=== PATIENT | female | born 1965 | race Caucasian/White ===

== ENCOUNTER 2016-12-05 02:23 | Emergency (ER) | payer MEDICAID, OTHER ==
[2016-12-05 02:44] VITALS: BP 112/85
[2016-12-05] MEDS ORDERED: Dextrose 5%-0.9% NaCl 1,000 ML IV SCH (03:00)
--- NOTE | 2016-12-05 03:06 | EDM.PDOC ---
ED HPI GENERAL MEDICAL PROBLEM - General Chief Complaint: Chest Pain Stated Complaint: [facility] Time Seen by Provider: 12/05/16 02:55 Source of Information: Reports: Patient History Limitations: Reports: No Limitations - History of Present Illness INITIAL COMMENTS - FREE TEXT/NARRATIVE: 51-year-old female attends the ED with severe central chest pressure discomfort that radiates up into the left neck left anterior chest and left shoulder. States she's had similar type pains several times in the last month or 2 but never to this severity usually they are very short-lived lasting 3-5 minutes. He is not aware of any gastroesophageal reflux disease and never has to use Tums or Rolaids. She denies any heartburn. She reports her were drinking alcohol this last evening and this seemed to make things much worse. Lines of pain in her epigastrium as well as her left upper quadrant of abdomen is well. Her concern that this may be heart related. She was given nitroglycerin 0.4 mg in the ambulance and is brought the pain down from a 7 to a 4. ECG done by triage nurse shows no signs of ischemia. Onset: Today Onset Date: 12/05/16 Onset Time: 00:00 Duration: Hour(s):, Getting Worse Location: Reports: Neck, Chest, Upper Extremity, Left Quality: Reports: Pressure, Sharp (Pain is sharp stabbing and spastic in nature. ), Stabbing, Other Severity: Severe (Pain was 10 out of 10 now down to about 3 out of 10.) Improves with: Reports: Other (Nitroglycerin 0.4 mg given by medics en route to [facility] from [place] seem to help ease the pain.) Worsens with: Reports: None Context: Reports: Other (Has been drinking alcohol). Denies: Activity, Exercise , Lifting, Sick Contact, Trauma Associated Symptoms: Reports: Chest Pain, Cough. Denies: Confusion, cough w sputum (See history of present illness), Diaphoresis (Has a smoker's cough currently smoking a half pack per day.), Fever/Chills, Headaches, Loss of Appetite, Malaise, Nausea/Vomiting, Rash, Seizure, Shortness of Breath, Syncope , Weakness Treatments SERVICER: Reports: IV/IO, Nitroglycerin, Oxygen mid chest area Pain Score (Numeric/FACES): 3 - Related Data Allergies Allergy/AdvReac Type Severity Reaction Status Date / Time latex Allergy Rash Verified 12/05/16 02:45 Opioids - Morphine Analogues Allergy Airway Verified 12/05/16 02:45 Tightness bee sting Allergy Airway Uncoded 12/05/16 02:45 Tightness Home Meds: Home Meds Albuterol Sulfate 0.63 mg IH BID 12/05/16 [History] Albuterol [IJD: Ventolin HFA] 1 puff INH .TWICE DAILY 12/05/16 [History] Amoxicillin [Amoxil] 1,000 mg PO Q12H #24 cap 12/05/16 [Rx] Clarithromycin [Biaxin] 500 mg PO BID #24 tablet 12/05/16 [Rx] Ibuprofen 400 mg PO ASDIRECTED PRN 12/05/16 [History] Past Medical History Respiratory History: Reports: Asthma, Bronchitis, Recurrent (Smoker.), COPD - Past Surgical History Female Surgical History: Reports: Hysterectomy Social & Family History - Living Situation & Occupation Living situation: Reports: Occupation: Unemployed ED ROS GENERAL - Review of Systems Review Of Systems: See Below Constitutional: Denies: Fever, Chills, Malaise, Weakness, Fatigue, Decreased Appetite, Weight Loss HEENT: Reports: No Symptoms Respiratory: Reports: Shortness of Breath, Wheezing (Occasionally she has history of COPD asthma.), Cough. Denies: Pleuritic Chest Pain, Hemoptysis ( Intermittent cough due to smoking cigarettes sputum is produced is usually clear to brown in color) Cardiovascular: Reports: Chest Pain, Dyspnea on Exertion. Denies: Blood Pressure Problem (See history of present illness), Claudication, Edema, Lightheadedness, Orthopnea, Palpitations (Sometimes) Endocrine: Reports: No Symptoms GI/Abdominal: Reports: Abdominal Pain (Current epigastric pressure discomfort). Denies: Constipation, Diarrhea, Decreased Appetite, Distension, Flatus : Reports: No Symptoms Musculoskeletal: Reports: No Symptoms Skin: Reports: No Symptoms Neurological: Reports: No Symptoms Psychiatric: Reports: No Symptoms Hematologic/Lymphatic: Reports: No Symptoms Immunologic: Reports: No Symptoms ED EXAM, GENERAL - Physical Exam Exam: See Below Exam Limited By: Intoxication (She is mild to moderately intoxicated by alcohol. ) General Appearance: Alert, WD/WN, Anxious, Moderate Distress Eye Exam: Bilateral Eye: Conjunctival Injection (Mild bilaterally), Nystagmus Throat/Mouth: Normal Inspection, Normal Lips, Normal Oropharynx Head: Atraumatic, Normocephalic Neck: Normal Inspection, Supple, Non-Tender, Full Range of Motion. No: Carotid Bruit, Lymphadenopathy (L), Lymphadenopathy (R) Respiratory/Chest: Lungs Clear, Normal Breath Sounds, No Accessory Muscle Use, Respiratory Distress Cardiovascular: Normal Peripheral Pulses, Regular Rate, Rhythm, No Edema, No Gallop, No Murmur Peripheral Pulses: 2+: Posterior Tibial (L), Posterior Tibial (R), Dorsalis Pedis (L), Dorsalis Pedis (R) GI/Abdominal: Normal Bowel Sounds, Soft, Tender, Other (Negative Melendez sign). No: Guarding (Some tenderness in the epigastrium but no rebound tenderness or guarding.), Rigid, Rebound Back Exam: Normal Inspection, Full Range of Motion. No: CVA Tenderness (L), CVA Tenderness (R) Extremities: Normal Inspection, Normal Range of Motion, Non-Tender, No Pedal Edema, Normal Capillary Refill Neurological: Alert, Oriented, CN II-XII Intact, Normal Cognition Psychiatric: Normal Affect, Normal Mood Skin Exam: Warm, Dry, Intact, Normal Color, No Rash EKG INTERPRETATION EKG Date: 12/05/16 Time: 02:30 Rhythm: NSR Rate (Beats/Min): 77 [place]: Normal P-Wave: Present QRS: Other (Diffuse early repolarization pattern.) ST-T: Other (Nonspecific T-wave inversion in lead aVL.) EKG Interpretation Comments: No evidence of ischemia on ECG. Course - Vital Signs Last Recorded V/S: Last Vital Signs Temp 36.2 C 12/05/16 02:30 Pulse 87 12/05/16 02:30 Resp 20 12/05/16 02:30 BP 112/85 12/05/16 02:30 Pulse Ox 100 12/05/16 02:30 - Orders/Labs/Meds Orders: Active Orders 24 hr Category Date Time Status EKG Documentation Completion [RC] STAT Care 12/05/16 02:56 Active Chest 1V Frontal [CR] Stat Exams 12/05/16 02:56 Taken Labs: Laboratory Tests 12/05/16 12/05/16 12/05/16 Range/Units 02:40 02:40 02:40 WBC 7.48 (3.98-10.04) K/mm3 RBC 4.55 (3.98-5.22) M/mm3 Hgb 15.0 (11.2-15.7) gm/L Hct 43.7 (34.1-44.9) % MCV 96.0 H (79.4-94.8) fl MCH 33.0 H (25.6-32.2) pg MCHC 34.3 (32.2-35.5) g/dl RDW Std Deviation 46.1 (36.4-46.3) fL Plt Count 238 (182-369) K/mm3 MPV 9.7 (9.4-12.3) fl Neutrophils % (Manual) 36 L (40-60) % Band Neutrophils % 0 (0-10) % Lymphocytes % (Manual) 49 H (20-40) % Atypical Lymphs % 3 % Monocytes % (Manual) 8 (2-10) % Eosinophils % (Manual) 3 (0.7-5.8) % Basophils % (Manual) 1 (0.1-1.2) Platelet Estimate Adequate Plt Morphology Comment Normal Polychromasia 1+ slight Poikilocytosis 1+ slight Anisocytosis 1+ slight Microcytosis 1+ slight Macrocytosis 1+ slight RBC Morph Comment Abnormal PT 10.1 (8.0-13.0) SECONDS INR 0.93 Sodium 142 (136-145) mEq/L Potassium 4.1 (3.5-5.1) mEq/L Chloride 108 H (98-107) mEq/L Carbon Dioxide 22 (21-32) mEq/L Anion Gap 16.1 H (5-15) BUN 9 (7-18) mg/dL Creatinine 0.9 (0.55-1.02) mg/dL Est Cr Clr Drug Dosing 84.51 mL/min Estimated GFR (MDRD) > 60 (>60) mL/min BUN/Creatinine Ratio 10.0 L (14-18) Glucose 99 (74-106) mg/dL Calcium 9.3 (8.5-10.1) mg/dL Total Bilirubin 0.4 (0.2-1.0) mg/dL AST 24 (15-37) U/L ALT 28 (14-59) U/L Alkaline Phosphatase 76 (46-116) U/L CK-MB (CK-2) 1.1 (0-3.6) ng/ml Troponin I < 0.017 (0.00-0.056) ng/mL C-Reactive Protein < 0.2 (<1.0) mg/dL Total Protein 7.5 (6.4-8.2) g/dl Albumin 4.2 (3.4-5.0) g/dl Globulin 3.3 gm/dL Albumin/Globulin Ratio 1.3 (1-2) Lipase 183 (73-393) U/L Ethyl Alcohol 0.15 (0.00) gm% H. pylori IgG Antibody (NEGATIVE) 12/05/16 Range/Units 02:40 WBC (3.98-10.04) K/mm3 RBC (3.98-5.22) M/mm3 Hgb (11.2-15.7) gm/L Hct (34.1-44.9) % MCV (79.4-94.8) fl MCH (25.6-32.2) pg MCHC (32.2-35.5) g/dl RDW Std Deviation (36.4-46.3) fL Plt Count (182-369) K/mm3 MPV (9.4-12.3) fl Neutrophils % (Manual) (40-60) % Band Neutrophils % (0-10) % Lymphocytes % (Manual) (20-40) % Atypical Lymphs % % Monocytes % (Manual) (2-10) % Eosinophils % (Manual) (0.7-5.8) % Basophils % (Manual) (0.1-1.2) Platelet Estimate Plt Morphology Comment Polychromasia Poikilocytosis Anisocytosis Microcytosis Macrocytosis RBC Morph Comment PT (8.0-13.0) SECONDS INR Sodium (136-145) mEq/L Potassium (3.5-5.1) mEq/L Chloride (98-107) mEq/L Carbon Dioxide (21-32) mEq/L Anion Gap (5-15) BUN (7-18) mg/dL Creatinine (0.55-1.02) mg/dL Est Cr Clr Drug Dosing mL/min Estimated GFR (MDRD) (>60) mL/min BUN/Creatinine Ratio (14-18) Glucose (74-106) mg/dL Calcium (8.5-10.1) mg/dL Total Bilirubin (0.2-1.0) mg/dL AST (15-37) U/L ALT (14-59) U/L Alkaline Phosphatase (46-116) U/L CK-MB (CK-2) (0-3.6) ng/ml Troponin I (0.00-0.056) ng/mL C-Reactive Protein (<1.0) mg/dL Total Protein (6.4-8.2) g/dl Albumin (3.4-5.0) g/dl Globulin gm/dL Albumin/Globulin Ratio (1-2) Lipase (73-393) U/L Ethyl Alcohol (0.00) gm% H. pylori IgG Antibody Positive H (NEGATIVE) Meds: Medications Discontinued Medications Generic Name Dose Route Start Last Admin Trade Name Freq PRN Reason Stop Dose Admin Al Hydroxide/Mg Hydroxide 30 0 ml 12/05/16 03:08 12/05/16 03:17 ml/ Lidocaine HCl 15 ml PO 12/05/16 03:09 45 ml ONETIME ONE Administration Dicyclomine HCl 20 mg 12/05/16 03:07 12/05/16 03:17 Bentyl PO 12/05/16 03:08 20 mg ONETIME ONE Administration Dextrose/Sodium Chloride 1,000 mls @ 150 mls/hr 12/05/16 03:00 12/05/16 03:10 Dextrose 5%-Normal Saline IV 150 mls/hr ASDIRECTED JOSLYN Administration Pantoprazole Sodium 40 mg 12/05/16 03:08 12/05/16 03:18 Protonix Iv IVPUSH 12/05/16 03:09 40 mg ONETIME ONE Administration - Radiology Interpretation Free Text/Narrative:: 51-year-old female presents to the ED per ambulance from [place] with severe central chest pain rating up into her left neck left arm and anterior chest. She reports that this is happened off and on for the last few months but never to this severity usually last 3 to or 3 minutes and goes away. She been drinking alcohol this evening but has not had no nausea vomiting. She's not aware of any reflux disease and is never needed Tums or Rolaids. She reports that the nitroglycerin given by the paramedics en route to the hospital alleviated the pain a good deal to get down from a 7 or 8 to a 3 or 4. Denies any true odynophagia. There's been no nausea or vomiting tonight. She has some associated epigastric and left upper quadrant abdominal discomfort. Examination reveals lung chatterjee to be clear. She is smoking approximately half pack per day. ECG shows sinus rhythm with no signs of ischemia. The history is strongly suggestive of esophageal spasm causing her pain. Plan we'll give her a GI cocktail. Bentyl 20 mg by mouth and Protonix 40 mg IV. Labs to be obtained to include cardiac markers and serum amylase lipase and H. pylori. - Re-Assessments/Exams Free Text/Narrative Re-Assessment/Exam: 12/05/16 04;20: Patient was able to fall asleep for a period of time she reports the GI cocktail seemed to alleviate most of her pain fairly promptly. Chest x-ray done shows hyperinflated lung chatterjee but otherwise lungs are clear heart said shadow is normal. Labs returned and reveal no evidence of heart related illness with normal troponin. White count was 7.48 with normal differential hemoglobin 15.0 hematocrit 43.7 platelets 238,000. Sodium 142 potassium 4.1 chloride 108 bicarbonate 22. Anion gap was slightly elevated at 16.1. Serum lipase is 183 blood alcohol was 0.15 g percent. Coags normal. She was positive for H. pylori infection. Plan tentatively she will be discharged to home on Prilosec 20 mg twice daily morning and bedtime for the next 5 days and then she is to start oral antibiotics amoxicillin 1 g twice daily with Biaxin 500 mg twice daily for 12 consecutive days to eradicate H. pylori infection. She will continue the Prilosec for 6 weeks consecutively. Twice daily for one month then 1 tablet bedtime for another 2 weeks. Reassured of course that there was no loss of heart related illness. Smoking may be contributing to her current problems. She will follow up with clinic in [place]. Departure - Departure Time of Disposition: 05:34 Disposition: Home, Self-Care 01 Condition: Fair Clinical Impression: Non-cardiac chest pain, Spasm of esophagus, Helicobacter pylori gastritis Prescriptions: Amoxicillin [Amoxil] 1,000 mg PO Q12H #24 cap Clarithromycin [Biaxin] 500 mg PO BID #24 tablet Instructions: Gastritis, Adult, [id number] Referrals: PCP,None [Primary Care Provider] - Forms: ED Department Discharge Additional Instructions: Evaluation in the emergency room today in regards to acute onset of severe central chest pain rating up towards the left neck left anterior chest and arm. Is came on acutely early this a.m. By history you have had similar type of attacks but never to this severity or length of time over the last several weeks or months. Heart tracing was within normal limits showing no signs of heart related illness. Chest x-ray revealed clear lung chatterjee with some signs of early emphysema change. Heart size is normal. Signs of infection identified. Lab work also revealed no evidence of heart related illness. Blood tests did however identify that you have a positive test for Helicobacter pylori which is a bacteria that can grow in the stomach and food pipe and cause ulceration. Strongly suspect pain that you experienced this evening was due to severe spasm of the esophagus and is white responded to nitroglycerin given to you by the paramedics. Nitroglycerin will relax the smooth muscle in the wall of the food pipe and relieve pain. You were treated with medication called Protonix in the emergency room to try and further reduce inflammation of the food pipe as well as Bentyl 20 mg tablets. Treatment of H. pylori infection is antibiotics for 12 days. However first of all you need to take Prilosec 20 mg in the morning and at bedtime for proximally for 5 days to reduce the acid content in your stomach which the H. pylori needs to survive in. Suggest then starting antibiotics Amoxil 1 g twice daily with Biaxin 500 mg twice daily for 12 consecutive days to eradicate this infection from your stomach. This treatment plan is usually 94 % effective in eradicating this organism. You may also wish to purchase an antacid called Gaviscon that you can take at bedtime so that of reflux occurs it is the Gaviscon that is usually reflux up into the food pipe and not stomach content or acid. Follow-up with personal doctor if any further problems occur. - My Orders Last 24 Hours: My Active Orders 12/05/16 02:56 EKG Documentation Completion [RC] STAT Chest 1V Frontal [CR] Stat - Assessment/Plan Last 24 Hours: My Active Orders 12/05/16 02:56 EKG Documentation Completion [RC] STAT Chest 1V Frontal [CR] Stat
[2016-12-05] MEDS ORDERED: Dicyclomine 10 MG Cap PO ONE (03:07)
[2016-12-05] MEDS ORDERED: Pantoprazole 40 MG Vial IVPUSH ONE (03:08)
[2016-12-05] MEDS ORDERED: Alum Hydrox/Mag Hydrox/Simeth 30 ML, Lidocaine 2% 15 ML PO ONE ×2 (03:08)
--- NOTE | 2016-12-08 10:35 | CR ---
Chest: Frontal view of the chest was obtained. Comparison: Previous chest x-ray of 04/22/10. Heart size and mediastinum are normal. Lungs are clear. Bony structures are grossly intact. Impression: 1. Nothing acute is identified on frontal chest x-ray. Diagnostic code #1
== END 2016-12-05 05:55 | disposition home or self-care (01) ==
LOC: JD.ED 02:23
DX: K29.60 Other gastritis without bleeding (principal); K22.4 Dyskinesia of esophagus; B96.81 Helicobacter pylori [H. pylori] as the cause of diseases classified elsewhere; J45.909 Unspecified asthma, uncomplicated; Z91.040 Latex allergy status; Z88.5 Allergy status to narcotic agent; Z91.030 Bee allergy status; Z90.710 Acquired absence of both cervix and uterus; F17.210 Nicotine dependence, cigarettes, uncomplicated
CPT/HCPCS: 36415; 71010; 80053; 82553; 83690; 84484; 85025; 85610; 86140; 86677; 93005; 96361; 96374; 99285; A9270; C9113; G0480; J7042; 99284